=== PATIENT | male | born 1965 | race Caucasian/White ===

== ENCOUNTER 2023-03-06 08:27 | Outpatient (OUT) | payer OTHER, SELFPAY ==
--- NOTE | 2023-03-06 08:36 | XR_ITS ---
The [address] [address] Patient Name: FABIAN KENNEDY MRN: [id number] date: 1965 Sex: M Assigned Patient Location: [facility] Current Patient Location: [facility] Accession/Order Number: [id number] Exam Date: 03/06/2023 08:36 Report Date: 03/06/2023 09:30 At the request of: REAGAN MOELLER Procedure: XR shoulder RT min 2V PROCEDURE: XR shoulder RT min 2V HISTORY: Acute Pain Of Right Shoulder M25.511 COMPARISON: None. FINDINGS: BONES:Mild degenerative changes of the acromioclavicular joint. Unremarkable humeral head and glenohumeral joint. No fracture, dislocation, bone lesion. Stable surgical clip adjacent proximal humeral diaphysis. SOFT TISSUES:No visible soft tissue swelling. EFFUSION:None visible. OTHER: Negative. XR/XR shoulder RT min 2V IMPRESSION: 1. No acute bone abnormality. 2. Mild degenerative changes of the acromioclavicular joint which may predispose to rotator cuff injury. Electronically authenticated by: REAGAN ALVAREZ Date: 03/06/2023 09:30
== END 2023-03-06 08:28 | disposition home or self-care (01) ==
PROVIDERS: PCP Family Medicine; Visit Provider Orthopaedic Surgery
DX: M25.511 Pain in right shoulder (principal)
CPT/HCPCS: 73030

== ENCOUNTER 2023-10-25 15:25 | Observation (INO) | payer OTHER, SELFPAY ==
[2023-10-25] VITALS (13 sets, daily range): BP systolic 97–119; BP diastolic 51–76; PULSE 62–93; TEMP 36.3–36.9; O2SAT 85–98; BMI 29.0
--- NOTE | 2023-10-25 16:11 | ED.ABDPAIN1 ---
Documented by User: LIDIA Hernadez 10/25/23 18:56 HPI - Abdominal Pain General Chief Complaint: Abdominal Pain Stated Complaint: Abdominal Pain Time Seen by Provider: 10/25/23 16:05 Source: patient Mode of arrival: walk-in Limitations: no limitations History of Present Illness HPI narrative: 57-year-old male presents to the emergency department with with complaint of abdominal pain. Onset last night. Initially located to the left lower quadrant, now noticing into the right lower quadrant. Describes as cramping. Did have some nausea and vomiting at midnight last night. Denies any fever, chills, diarrhea, prior abdominal surgeries. Quality: as above Severity: moderate Timing: as above, constant Context: Normal setting and activity Modifying factors: pain worse with palpation Associated symptoms: as above Related Data Home Medications ?Medication ?Instructions ?Recorded ?Confirmed No Known Home Medications 10/25/23 10/25/23 Allergies Allergy/AdvReac Type Severity Reaction Status Date / Time No Known Drug Allergies Allergy Verified 10/25/23 15:28 Review of Systems ROS Narrative CONST: Denies any fever, chills HENT: Denies any congestion, sore throat RESP: Denies any cough, shortness of breath CV: Denies any chest pain, peripheral edema GI: +abd pain, n/v.? Denies any diarrhea : Denies any flank pain, dysuria MS: Denies any back pain, myalgias SKIN: Denies any color change, rash NEURO: Denies numbness, weakness PSYCHIATRIC: Denies confusion, agitation PFSH PFSH Surgical History (Updated 10/25/23 @ 18:23 by Marysol Eller LPN) History of arthroplasty of right shoulder ?Z96.611 - Presence of right artificial shoulder joint (ICD-10) H/O hernia repair ?Z98.890 - Other specified postprocedural states (ICD-10) ?Z87.19 - Personal history of other diseases of the digestive system (ICD-10) H/O knee surgery ?Z98.890 - Other specified postprocedural states (ICD-10) Family History (Updated 10/25/23 @ 18:22 by Marysol Eller LPN) Father Family history of diabetes mellitus Mother Family history of hypertension Social History (Updated 10/25/23 @ 18:25 by Marysol Eller LPN) Within the past year, how often did you have a drink containing alcohol: monthly or less Within the past year, how many standard drinks containing alcohol did you have on a typical day: 1 or 2 Within the past year, how often did you have six or more drinks on one occasion: never Total score: 0 Score interpretation: A score less than 4 is consistent with normal alcohol consumption. Smoking status: Never smoker Non-prescribed substance use: denies use Known occupational exposures/hazards: No Highest level of school completed/degree received: Bachelor's degree Do you want help with school or training: No Are you now , , , , never or living with a partner: In a typical week, how many times do you talk on the telephone with family, friends, or neighbors: 3 or more times per week How often do you get together with friends or relatives: 3 or more times per week How often do you attend uatsdin or worship services: 4 or more times per year Do you belong to any clubs or organizations such as uatsdin groups unions, [employer] or athletic groups, or school groups: no Total score: 3 Score interpretation: A score of greater than or equal to 2 indicates the lowest level of social isolation. Little interest or pleasure in doing things: not at all Feeling down, depressed, or hopeless: not at all Due to disability, difficulty making decisions: No Do you think of yourself as: straight/heterosexual Gender Identity: male Exam Narrative Exam Narrative: Vital signs reviewed Nurses notes noted CONST: Nontoxic, well appearing, well nourished, in no distress.? No diaphoresis.?? HENT: normocephalic, atraumatic, moist mucous membrane, no abnormalities of the nose noted, hearing normal EYES: normal appearing conjunctiva, no apparent discharge bilat NECK: normal appearance CV: normal rate, regular rhythm, no murmur RESP: normal effort, speaking in complete sentences. Lung sounds clear and equal bilat.? No wheezes, rales, rhonchi GI: normal bowel sounds, soft, no distension, + tenderness right lower quadrant without rebound or guarding : no CVA tenderness MS: no edema, tenderness SKIN: no pallor NEURO: A&Ox 3, no focal findings PSYCH: normal mood, affect Constitutional Vital Signs, click to edit/add: Last Vital Signs Temp 97.9 F 04/10/24 20:53 Pulse 64 10/25/23 20:53 Resp 18 10/25/23 20:53 BP 97/58 10/25/23 20:53 Pulse Ox 90 L 10/25/23 20:54 O2 Del Method Nasal Cannula 10/25/23 20:54 O2 Flow Rate 2 10/25/23 20:54 Course Reevaluation(s) Reevaluation #1: On reevaluation, patient's pain has improved, it is controlled. Discussed with patient and results, plan, disposition. They are agreeable with plan Time: 17:30 Consultations Consultation #1: Patient discussed with Dr. Gleason who will contact the nursing gate services supervisor for surgery Time: 17:41 Consultation #2: Patient discussed with Dr. Che who is agreeable with admission Time: 17:41 Vital Signs Vital signs: Vital Signs Temperature 98.4 F 10/25/23 15:28 Pulse Rate 62 10/25/23 15:28 Respiratory Rate 20 10/25/23 15:28 Blood Pressure 109/64 10/25/23 15:28 Pulse Oximetry 98 10/25/23 15:28 Oxygen Delivery Method Room Air 10/25/23 15:28 Temperature 97.9 F 10/25/23 20:53 Pulse Rate 64 10/25/23 20:53 Respiratory Rate 18 10/25/23 20:53 Blood Pressure 97/58 10/25/23 20:53 Pulse Oximetry 90 L 10/25/23 20:54 Oxygen Delivery Method Nasal Cannula 10/25/23 20:54 Oxygen Delivery Flow Rate 2 10/25/23 20:54 MDM - Abdominal Pain MDM Narrative Medical decision making narrative: Is a pleasant 57-year-old male who presents to the emergency department with his with complaint of abdominal pain. Onset last night in the left lower abdominal region. Did have nausea and vomiting at midnight. Now pain is located to the right lower quadrant region and has been worsening. Denies any known fevers, diarrhea, prior abdominal problems, surgeries. Denies past medical history. On arrival, afebrile, vital signs are stable. On exam, nontoxic, well-appearing patient in no apparent distress. He does have focal tenderness to the right lower quadrant region of his abdomen. No appreciable rebound or guarding was present. Labs reveal elevated white blood cell count of 16,000. Otherwise no anemia, thrombocytopenia, electrolyte imbalance, renal impairment. CT abdomen pelvis imaging, per radiologist reveals appendicitis with some localized peritonitis. Fever abdominal pain secondary to acute appendicitis. Less likely diverticulitis based on imaging Less likely ureterolithiasis based on imaging. Consultation was made with surgery on-call and patient will be admitted to the hospitalist service. He was started on IV Zosyn. Disposition ? The patient was admitted, observation status. Condition at time of disposition: stable & improved Discussed with patient and family results, plan, and disposition.? PLEASE NOTE: Portions of the medical record may have been produced using electronic catalogue illustrator and may contain errors with respect to translation of words which may not have been identified prior to finalization of the chart. Lab Data Attestation: I reviewed the patient's lab results. Labs: Lab Results 10/25/23 Range/Units 16:00 WBC 16.4 H (4.0-11.0) 10^3/uL RBC 4.88 (4.70-6.10) 10^6/uL Hgb 15.1 (14.0-18.0) g/dL Hct 45.3 (42.0-54.0) % MCV 92.8 (80.0-94.0) fL MCH 30.9 (25.9-34.0) pg MCHC 33.3 (29.9-35.2) g/dL RDW 12.2 (11.0-15.0) % Plt Count 266 (150-450) 10^3/uL MPV 9.2 L (9.5-13.5) fL Neut % (Auto) 83.8 H (43.0-75.0) % Lymph % (Auto) 7.3 L (20.5-60.0) % [place] % (Auto) 7.8 (1.7-12.0) % Eos % (Auto) 0.6 L (0.9-7.0) % Baso % (Auto) 0.3 (0.2-2.0) % Neut # (Auto) 13.7 H (1.4-6.5) 10^3/uL Lymph # (Auto) 1.2 (1.2-3.8) 10^3/uL [place] # (Auto) 1.3 H (0.3-0.8) 10^3/uL Eos # (Auto) 0.1 (0.0-0.7) 10^3/uL Baso # (Auto) 0.1 (0.0-0.1) 10^3/uL Abs Immat Gran (auto) 0.04 H (0.00-0.03) 10^3/uL Imm/Tot Granulo (auto) 0.2 (0.0-0.5) % Sodium 141 (136-145) mmol/L Potassium 3.7 (3.5-5.1) mmol/L Chloride 103 (98-107) mmol/L Carbon Dioxide 31.3 (21.0-32.0) mmol/L Anion Gap 10.4 BUN 12.0 (7.0-18.0) mg/dL Creatinine 0.96 (0.70-1.30) mg/dL Est GFR ( Amer) >60 (>=60) Est GFR (Non-Af Amer) >60 (>=60) BUN/Creatinine Ratio 12.5 Glucose 97 (74-106) mg/dL Calcium 9.2 (8.5-10.1) mg/dL Total Bilirubin 1.7 H (0.2-1.0) mg/dL AST 17 (15-37) U/L ALT 47 (16-63) U/L Alkaline Phosphatase 88 (46-116) U/L Total Protein 6.9 (6.4-8.2) g/dL Albumin 3.5 (3.4-5.0) g/dL Globulin 3.4 g/dL Albumin/Globulin Ratio 1.0 Lipase 40.0 (16.0-77.0) U/L Urine Color Yellow (YELLOW) Urine Clarity Clear (CLEAR) Urine pH 6.0 (5.0-9.0) Ur Specific [place] 1.025 (1.005-1.025) Urine Protein Trace (NEG/TRACE) mg/dL Urine Glucose (UA) Negative (NEGATIVE) mg/dL Urine Ketones Trace A (NEGATIVE) mg/dL Urine Occult Blood Negative (NEGATIVE) Urine Nitrite Negative (NEGATIVE) Urine Bilirubin Negative (NEGATIVE) Urine Urobilinogen 1.0 (0.2-1.0) EU/dL Ur Leukocyte Esterase Negative (NEGATIVE) Urine RBC 0-2 (0-2) #/HPF Urine WBC None seen (NONE SEEN) #/HPF Ur Squamous Epith Cells Rare (NONE/RARE) #/LPF Urine Crystals None seen (None Seen) #/HPF Urine Bacteria Trace A (NONE SEEN) #/HPF Urine Casts None seen (NONE SEEN) #/LPF Urine Mucus Moderate A (NONE SEEN) Imaging Data CT scan - abdomen: Radiologist's impression: ITS Impressions Abdomen/Pelvis CT 10/25/23 16:39 IMPRESSION: 1. Abnormal findings right lower quadrant consistent with appendicitis with atypical gas possible extraluminal due to localized perforation.. Stranding and inflammation noted in this area without definite findings of abscess. New from previous CT 03/24/2021. 2. No small bowel dilatation or obstruction. No inflammation or fluid noted in the abdomen. 3. Cholelithiasis without evidence of cholecystitis. Electronically authenticated by: KIANA JACKSON Date: 10/25/2023 17:06 Discharge Plan Discharge Chief Complaint: Abdominal Pain Clinical Impression: Abdominal pain, acute, right lower quadrant Leukocytosis Qualifiers: Leukocytosis type: unspecified Qualified Code(s): D72.829 - Elevated white blood cell count, unspecified Acute appendicitis Qualifiers: Acute appendicitis type: with localized peritonitis Appendicitis gangrene presence: without gangrene Appendicitis perforation presence: unspecified whether perforation present Appendicitis abscess presence: without abscess Qualified Code(s): K35.30 - Acute appendicitis with localized peritonitis, without perforation or gangrene Patient Disposition: Admitted as Observation Time of Disposition Decision: 17:39 Condition: Good Discharge Date/Time: 10/25/23 17:58 Documented by User: Dhruv Greenfield MD 10/25/23 21:39 HPI - Abdominal Pain General Chief Complaint: Abdominal Pain Stated Complaint: Abdominal Pain Time Seen by Provider: 10/25/23 16:05 Related Data Home Medications ?Medication ?Instructions ?Recorded ?Confirmed No Known Home Medications 10/25/23 10/25/23 Allergies Allergy/AdvReac Type Severity Reaction Status Date / Time No Known Drug Allergies Allergy Verified 10/25/23 15:28 PFSH PFSH Surgical History (Updated 10/25/23 @ 18:23 by Marysol Eller LPN) History of arthroplasty of right shoulder ?Z96.611 - Presence of right artificial shoulder joint (ICD-10) H/O hernia repair ?Z98.890 - Other specified postprocedural states (ICD-10) ?Z87.19 - Personal history of other diseases of the digestive system (ICD-10) H/O knee surgery ?Z98.890 - Other specified postprocedural states (ICD-10) Family History (Updated 10/25/23 @ 18:22 by Marysol Eller LPN) Father Family history of diabetes mellitus Mother Family history of hypertension Social History (Updated 10/25/23 @ 18:25 by Marysol Eller LPN) Within the past year, how often did you have a drink containing alcohol: monthly or less Within the past year, how many standard drinks containing alcohol did you have on a typical day: 1 or 2 Within the past year, how often did you have six or more drinks on one occasion: never Total score: 0 Score interpretation: A score less than 4 is consistent with normal alcohol consumption. Smoking status: Never smoker Non-prescribed substance use: denies use Known occupational exposures/hazards: No Highest level of school completed/degree received: Bachelor's degree Do you want help with school or training: No Are you now , , , , never or living with a partner: In a typical week, how many times do you talk on the telephone with family, friends, or neighbors: 3 or more times per week How often do you get together with friends or relatives: 3 or more times per week How often do you attend uatsdin or worship services: 4 or more times per year Do you belong to any clubs or organizations such as uats[employer] groups unions, fraternal or athletic groups, or school groups: no Total score: 3 Score interpretation: A score of greater than or equal to 2 indicates the lowest level of social isolation. Little interest or pleasure in doing things: not at all Feeling down, depressed, or hopeless: not at all Due to disability, difficulty making decisions: No Do you think of yourself as: straight/heterosexual Gender Identity: male Exam Constitutional Vital Signs, click to edit/add: Last Vital Signs Temp 97.9 F 10/25/23 20:53 Pulse 64 10/25/23 20:53 Resp 18 10/25/23 20:53 BP 97/58 10/25/23 20:53 Pulse Ox 90 L 10/25/23 20:54 O2 Del Method Nasal Cannula 10/25/23 20:54 O2 Flow Rate 2 10/25/23 20:54 Course Vital Signs Vital signs: Vital Signs Temperature 98.4 F 10/25/23 15:28 Pulse Rate 62 10/25/23 15:28 Respiratory Rate 20 10/25/23 15:28 Blood Pressure 109/64 10/25/23 15:28 Pulse Oximetry 98 10/25/23 15:28 Oxygen Delivery Method Room Air 10/25/23 15:28 Temperature 97.9 F 10/25/23 20:53 Pulse Rate 64 10/25/23 20:53 Respiratory Rate 18 10/25/23 20:53 Blood Pressure 97/58 10/25/23 20:53 Pulse Oximetry 90 L 10/25/23 20:54 Oxygen Delivery Method Nasal Cannula 10/25/23 20:54 Oxygen Delivery Flow Rate 2 10/25/23 20:54 MDM - Abdominal Pain MDM Narrative Medical decision making narrative: Is a pleasant 57-year-old male who presents to the emergency department with his with complaint of abdominal pain. Onset last night in the left lower abdominal region. Did have nausea and vomiting at midnight. Now pain is located to the right lower quadrant region and has been worsening. Denies any known fevers, diarrhea, prior abdominal problems, surgeries. Denies past medical history. On arrival, afebrile, vital signs are stable. On exam, nontoxic, well-appearing patient in no apparent distress. He does have focal tenderness to the right lower quadrant region of his abdomen. No appreciable rebound or guarding was present. Labs reveal elevated white blood cell count of 16,000. Otherwise no anemia, thrombocytopenia, electrolyte imbalance, renal impairment. CT abdomen pelvis imaging, per radiologist reveals appendicitis with some localized peritonitis. Fever abdominal pain secondary to acute appendicitis. Less likely diverticulitis based on imaging Less likely ureterolithiasis based on imaging. Consultation was made with surgery on-call Dr Gleason, and patient will be admitted to the hospitalist service. He was started on IV Zosyn. Disposition ? The patient was admitted, observation status. Condition at time of disposition: stable & improved Discussed with patient and family results, plan, and disposition.? PLEASE NOTE: Portions of the medical record may have been produced using electronic catalogue illustrator and may contain errors with respect to translation of words which may not have been identified prior to finalization of the chart. I, Dr Greenfield, have reviewed the above progress note and course of action in the ER; agree with the above. I have gone over history and physical, and discussed disposition and treatment plan with the patient. Lab Data Labs: Lab Results 10/25/23 Range/Units 16:00 WBC 16.4 H (4.0-11.0) 10^3/uL RBC 4.88 (4.70-6.10) 10^6/uL Hgb 15.1 (14.0-18.0) g/dL Hct 45.3 (42.0-54.0) % MCV 92.8 (80.0-94.0) fL MCH 30.9 (25.9-34.0) pg MCHC 33.3 (29.9-35.2) g/dL RDW 12.2 (11.0-15.0) % Plt Count 266 (150-450) 10^3/uL MPV 9.2 L (9.5-13.5) fL Neut % (Auto) 83.8 H (43.0-75.0) % Lymph % (Auto) 7.3 L (20.5-60.0) % [place] % (Auto) 7.8 (1.7-12.0) % Eos % (Auto) 0.6 L (0.9-7.0) % Baso % (Auto) 0.3 (0.2-2.0) % Neut # (Auto) 13.7 H (1.4-6.5) 10^3/uL Lymph # (Auto) 1.2 (1.2-3.8) 10^3/uL [place] # (Auto) 1.3 H (0.3-0.8) 10^3/uL Eos # (Auto) 0.1 (0.0-0.7) 10^3/uL Baso # (Auto) 0.1 (0.0-0.1) 10^3/uL Abs Immat Gran (auto) 0.04 H (0.00-0.03) 10^3/uL Imm/Tot Granulo (auto) 0.2 (0.0-0.5) % Sodium 141 (136-145) mmol/L Potassium 3.7 (3.5-5.1) mmol/L Chloride 103 (98-107) mmol/L Carbon Dioxide 31.3 (21.0-32.0) mmol/L Anion Gap 10.4 BUN 12.0 (7.0-18.0) mg/dL Creatinine 0.96 (0.70-1.30) mg/dL Est GFR ( Amer) >60 (>=60) Est GFR (Non-Af Amer) >60 (>=60) BUN/Creatinine Ratio 12.5 Glucose 97 (74-106) mg/dL Calcium 9.2 (8.5-10.1) mg/dL Total Bilirubin 1.7 H (0.2-1.0) mg/dL AST 17 (15-37) U/L ALT 47 (16-63) U/L Alkaline Phosphatase 88 (46-116) U/L Total Protein 6.9 (6.4-8.2) g/dL Albumin 3.5 (3.4-5.0) g/dL Globulin 3.4 g/dL Albumin/Globulin Ratio 1.0 Lipase 40.0 (16.0-77.0) U/L Urine Color Yellow (YELLOW) Urine Clarity Clear (CLEAR) Urine pH 6.0 (5.0-9.0) Ur Specific [place] 1.025 (1.005-1.025) Urine Protein Trace (NEG/TRACE) mg/dL Urine Glucose (UA) Negative (NEGATIVE) mg/dL Urine Ketones Trace A (NEGATIVE) mg/dL Urine Occult Blood Negative (NEGATIVE) Urine Nitrite Negative (NEGATIVE) Urine Bilirubin Negative (NEGATIVE) Urine Urobilinogen 1.0 (0.2-1.0) EU/dL Ur Leukocyte Esterase Negative (NEGATIVE) Urine RBC 0-2 (0-2) #/HPF Urine WBC None seen (NONE SEEN) #/HPF Ur Squamous Epith Cells Rare (NONE/RARE) #/LPF Urine Crystals None seen (None Seen) #/HPF Urine Bacteria Trace A (NONE SEEN) #/HPF Urine Casts None seen (NONE SEEN) #/LPF Urine Mucus Moderate A (NONE SEEN) Imaging Data CT scan - abdomen: Radiologist's impression: ITS Impressions Abdomen/Pelvis CT 10/25/23 16:39
[2023-10-25 16:19] LABS: Basophils Absolute Auto 0.1 10^3/uL (0.0-0.1); Basophils Percent Auto 0.3 % (0.2-2.0); Eosinophils Absolute Auto 0.1 10^3/uL (0.0-0.7); Eosinophils Percent Auto 0.6 % (0.9-7.0); Hematocrit 45.3 % (42.0-54.0); Hemoglobin 15.1 g/dL (14.0-18.0); Immature Granulocytes Abs Auto 0.04 10^3/uL (0.00-0.03); Immature Granulocytes Pct Auto 0.2 % (0.0-0.5); Lymphocytes Absolute Auto 1.2 10^3/uL (1.2-3.8); Lymphocytes Percent Auto 7.3 % (20.5-60.0); Mean Corpuscular HGB Conc 33.3 g/dL (29.9-35.2); Mean Corpuscular Hemoglobin 30.9 pg (25.9-34.0); Mean Corpuscular Volume 92.8 fL (80.0-94.0); Mean Platelet Volume 9.2 fL (9.5-13.5); Monocytes Absolute Auto 1.3 10^3/uL (0.3-0.8); Monocytes Percent Auto 7.8 % (1.7-12.0); Neutrophils Absolute Auto 13.7 10^3/uL (1.4-6.5); Neutrophils Percent Auto 83.8 % (43.0-75.0); Platelet Count 266 10^3/uL (150-450); Red Blood Count 4.88 10^6/uL (4.70-6.10); Red Cell Distribution Width 12.2 % (11.0-15.0); White Blood Count 16.4 10^3/uL (4.0-11.0)
[2023-10-25 16:20] LABS: Bilirubin Urine NEGATIVE (NEGATIVE); Blood Urine NEGATIVE (NEGATIVE); Clarity Urine CLEAR (CLEAR); Color Urine YELLOW (YELLOW); Glucose Urine UA NEGATIVE (NEGATIVE); Ketones Urine TRACE mg/dL (NEGATIVE); Leukocyte Esterase Urine NEGATIVE (NEGATIVE); Nitrite Urine NEGATIVE (NEGATIVE); Protein Urine TRACE mg/dL (NEG/TRACE); Specific Gravity Urine 1.025 (1.005-1.025)
[2023-10-25] MEDS: ONDANSETRON PF 4 MG/2 ML VIAL IV (16:21)
[2023-10-25] MEDS: 0.9 % SODIUM CHLORIDE 1,000 ML 999 ML IV (16:21)
[2023-10-25] MEDS: MORPHINE SULFATE 4 MG/ML VIAL IV (16:21)
[2023-10-25 16:30] LABS: Bacteria Urine TRACE #/HPF (NONE SEEN); Cast Seen? NONE SEEN #/LPF (NONE SEEN); Crystals Seen? None Seen #/HPF (None Seen); Mucus Urine MODERATE (NONE SEEN); RBC Urine 0-2 #/HPF (0-2); Squamous Epithelial Cell Urine RARE #/LPF (NONE/RARE); WBC Urine NONE SEEN #/HPF (NONE SEEN)
[2023-10-25 16:37] LABS: Alanine Aminotransferase 47 U/L (16-63); Albumin Level 3.5 g/dL (3.4-5.0); Alkaline Phosphatase 88 U/L (46-116); Anion Gap 10.4; Aspartate Amino Transferase 17 U/L (15-37); BUN Creatinine Ratio 12.5; Bilirubin Total 1.7 mg/dL (0.2-1.0); Calcium 9.2 mg/dL (8.5-10.1); Carbon Dioxide 31.3 mmol/L (21.0-32.0); Chloride 103 mmol/L (98-107); Estimated GFR (African America >60 (>=60); Estimated GFR (Non-African Ame >60 (>=60); Globulin 3.4 g/dL; Glucose 97 mg/dL (74-106); Potassium 3.7 mmol/L (3.5-5.1); Sodium 141 mmol/L (136-145); Total Protein 6.9 g/dL (6.4-8.2)
--- NOTE | 2023-10-25 16:39 | CT_ITS ---
The [address] [address] Patient Name: FABIAN KENNEDY MRN: [id number] date: 1965 Sex: M Assigned Patient Location: ER Current Patient Location: ER Accession/Order Number: [id number] Exam Date: 10/25/2023 16:28 Report Date: 10/25/2023 17:06 At the request of: SALVADOR FERNANDEZ Procedure: CT abdomen pelvis w con EXAM: CT abdomen pelvis w con HISTORY: RLQ abd pain COMPARISON: CT abdomen pelvis 03/24/2021. Right upper quadrant ultrasound 03/26/2021. TECHNIQUE: CT abdomen pelvis with IV contrast. Axial scans with reformatted coronal sagittal images. Individualized dose reduction used for this exam. Contrast: 100 mL Omnipaque 300 FINDINGS: Lower chest: No acute process, no consolidation or pleural effusion. ABDOMEN: Normal enhancement liver without mass or focal lesion. Cholelithiasis with 2 stones 12 mm 17 mm similar to previous. No gallbladder wall thickening, edema or surrounding fluid or evidence of cholecystitis. No biliary dilatation. Normal-appearing adrenal glands, pancreas spleen. No ascites or fluid collection. No adenopathy. Normal symmetric renal enhancement without mass or hydronephrosis. Normal appearing ureters. Abnormal findings right lower quadrant adjacent the cecum and terminal ileum. Distended tubular structure felt to be appendix up to 15 mm diameter. Faintly calcified appendicolith felt to be present. Surrounding stranding and inflammation consistent with acute appendicitis possible extraluminal gas medially which could be localized perforation. I do not see a walled off rim-enhancing fluid collection/abscess in this area. Reflects a marked change from CT 03/24/2021. Appendix located retrocecal. Bowel otherwise unremarkable without small bowel this dilatation or obstruction. Moderate gas and stool throughout the colon Pelvis: Right lower quadrant upper pelvic inflammation consistent with appendicitis as noted above. No lower pelvic fluid collection, mass or adenopathy. Small amount of fluid in the bladder. Prominent prostate. CT/CT abdomen pelvis w con IMPRESSION: 1. Abnormal findings right lower quadrant consistent with appendicitis with atypical gas possible extraluminal due to localized perforation.. Stranding and inflammation noted in this area without definite findings of abscess. New from previous CT 03/24/2021. 2. No small bowel dilatation or obstruction. No inflammation or fluid noted in the abdomen. 3. Cholelithiasis without evidence of cholecystitis. Electronically authenticated by: KIANA JACKSON Date: 10/25/2023 17:06
[2023-10-25] MEDS: PIPERACILLIN SODIUM/TAZOBACTAM 3.375 GM in 0.9 % SODIUM CHLORIDE 50 ML IV (17:56)
--- NOTE | 2023-10-25 18:54 | P.GSCN_ITS ---
<Statement entered by Nate Gleason MD - 10/26/23 06:17> This documentation has been reviewed and approved. I examined pt. with resident and agree with all of the above. Risks, benefits and alternatives explained to pt. and his an may include infection, post op abscess, bleeding, blood clots to legs or lungs, heart attack, stroke or .They agreed. History of Present Illness Consult details Consult date: 10/25/23 Reason for consult: abdominal pain Requesting physician: Dhruv Greenfield Narrative: Mr. Hardin is a relatively healthy 57M who presents with a 1-day history of evolving abdominal pain. 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 Pain was somewhat relieved after eating, then he had about an hour of vomiting and dry heaves late last night. Throughout the day today, the pain has migrated to right lower quadrant. He was able to keep down some soup at about 11:30am today, which was his last food intake. Last BM was this morning. After pain medication administration, he rates current pain 5 out of 10. He is examined seated at bedside and does not appear in distress. Plans for laparoscopic surgery are explained to him and his , and written consent is obtained. He states he has had no issues with general anesthesia in the past. He is familiar with laparoscopic surgery after surgery on his shoulder. He has not seen his PCP for approximately 5 years but states he had a full work up of his health 4 years ago when testing to be an organ donor. Review of Systems ROS Status of ROS 10 or more systems reviewed and unremark able except as noted in history and below PFSH PFSH Surgical History (Updated 10/25/23 @ 18:23 by Marysol Eller LPN) History of arthroplasty of right shoulder ?Z96.611 - Presence of right artificial shoulder joint (ICD-10) H/O hernia repair ?Z98.890 - Other specified postprocedural states (ICD-10) ?Z87.19 - Personal history of other diseases of the digestive system (ICD-10) H/O knee surgery ?Z98.890 - Other specified postprocedural states (ICD-10) Family History (Updated 10/25/23 @ 18:22 by Marysol Eller LPN) Father Family history of diabetes mellitus Mother Family history of hypertension Social History (Updated 10/25/23 @ 18:25 by Marysol Eller LPN) Within the past year, how often did you have a drink containing alcohol: monthly or less Within the past year, how many standard drinks containing alcohol did you have on a typical day: 1 or 2 Within the past year, how often did you have six or more drinks on one occasion: never Total score: 0 Score interpretation: A score less than 4 is consistent with normal alcohol consumption. Smoking status: Never smoker Non-prescribed substance use: denies use Known occupational exposures/hazards: No Highest level of school completed/degree received: Bachelor's degree Do you want help with school or training: No Are you now , , , , never or living with a partner: In a typical week, how many times do you talk on the telephone with family, friends, or neighbors: 3 or more times per week How often do you get together with friends or relatives: 3 or more times per week How often do you attend mosque or jehovah's witness services: 4 or more times per year Do you belong to any clubs or organizations such as mosque groups unions, fra[employer] or athletic groups, or school groups: no Total score: 3 Score interpretation: A score of greater than or equal to 2 indicates the lowest level of social isolation. Little interest or pleasure in doing things: not at all Feeling down, depressed, or hopeless: not at all Due to disability, difficulty making decisions: No Do you think of yourself as: straight/heterosexual Gender Identity: male Meds Home Medications and Allergies Home Medications ?Medication ?Instructions ?Recorded ?Confirmed ?Type No Known Home Medications 10/25/23 10/25/23 History Allergies Allergy/AdvReac Type Severity Reaction Status Date / Time No Known Drug Allergies Allergy Verified 10/25/23 15:28 Exam Constitutional Vital Signs, click to edit/add: Last Vital Signs Temp 98.5 F 10/25/23 18:11 Pulse 64 10/25/23 18:11 Resp 18 10/25/23 18:11 BP 102/67 10/25/23 18:11 Pulse Ox 95 10/25/23 18:11 O2 Del Method Room Air 10/25/23 18:22 Common normals: no apparent distress, average body habitus, oriented x3, healthy appearing and alert General appearance: cooperative, well kempt and well developed; not ill appearing and not diaphoretic Orientation/consciousness: Yes awake HENMT Common normals: normocephalic, head/scalp atraumatic, hearing grossly normal bilaterally, external nose normal, moist oral mucous membranes and dentition normal Head and scalp: normal to inspection Neck & C-Spine General: normal visual inspection Chest Common normals: inspection of chest normal Respiratory Common normals: normal respiratory effort and clear to auscultation bilaterally Effort & inspection: able to speak in complete sentences and symmetric chest movement Cardio Common normals: regular rate and regular rhythm GI Inspection: normal to inspection Auscultation: normoactive bowel sounds Palpation: soft and tender Details: RLQ and McBurney's point; negative for Rovsing's sign Neuro Common normals: CN's II-XII intact bilaterally and no sensory deficits noted Results Labs Labs: Abnormal lab results 10/25/23 Range/Units 16:00 WBC 16.4 H (4.0-11.0) 10^3/uL MPV 9.2 L (9.5-13.5) fL Neut % (Auto) 83.8 H (43.0-75.0) % Lymph % (Auto) 7.3 L (20.5-60.0) % Eos % (Auto) 0.6 L (0.9-7.0) % Neut # (Auto) 13.7 H (1.4-6.5) 10^3/uL Hinds # (Auto) 1.3 H (0.3-0.8) 10^3/uL Abs Immat Gran (auto) 0.04 H (0.00-0.03) 10^3/uL Total Bilirubin 1.7 H (0.2-1.0) mg/dL Urine Ketones Trace A (NEGATIVE) mg/dL Urine Bacteria Trace A (NONE SEEN) #/HPF Urine Mucus Moderate A (NONE SEEN) Diabetes panel 10/25/23 Range/Units 16:00 Sodium 141 (136-145) mmol/L Potassium 3.7 (3.5-5.1) mmol/L Chloride 103 (98-107) mmol/L Carbon Dioxide 31.3 (21.0-32.0) mmol/L BUN 12.0 (7.0-18.0) mg/dL Creatinine 0.96 (0.70-1.30) mg/dL Glucose 97 (74-106) mg/dL Calcium 9.2 (8.5-10.1) mg/dL AST 17 (15-37) U/L ALT 47 (16-63) U/L Alkaline Phosphatase 88 (46-116) U/L Total Protein 6.9 (6.4-8.2) g/dL Albumin 3.5 (3.4-5.0) g/dL Calcium panel 10/25/23 Range/Units 16:00 Calcium 9.2 (8.5-10.1) mg/dL Albumin 3.5 (3.4-5.0) g/dL Pituitary panel 10/25/23 Range/Units 16:00 Sodium 141 (136-145) mmol/L Potassium 3.7 (3.5-5.1) mmol/L Chloride 103 (98-107) mmol/L Carbon Dioxide 31.3 (21.0-32.0) mmol/L BUN 12.0 (7.0-18.0) mg/dL Creatinine 0.96 (0.70-1.30) mg/dL Glucose 97 (74-106) mg/dL Calcium 9.2 (8.5-10.1) mg/dL Adrenal panel 10/25/23 Range/Units 16:00 Sodium 141 (136-145) mmol/L Potassium 3.7 (3.5-5.1) mmol/L Chloride 103 (98-107) mmol/L Carbon Dioxide 31.3 (21.0-32.0) mmol/L BUN 12.0 (7.0-18.0) mg/dL Creatinine 0.96 (0.70-1.30) mg/dL Glucose 97 (74-106) mg/dL Calcium 9.2 (8.5-10.1) mg/dL Total Bilirubin 1.7 H (0.2-1.0) mg/dL AST 17 (15-37) U/L ALT 47 (16-63) U/L Alkaline Phosphatase 88 (46-116) U/L Total Protein 6.9 (6.4-8.2) g/dL Albumin 3.5 (3.4-5.0) g/dL All other labs normal. Imaging Abdomen CT scan report/results: report reviewed Assessment and Plan Assessment and Plan (1) Acute appendicitis: Qualifiers: Acute appendicitis type: with localized peritonitis Appendicitis abscess presence: without abscess Appendicitis gangrene presence: without gangrene Appendicitis perforation presence: unspecified whether perforation present Qualified Code(s): K35.30 - Acute appendicitis with localized peritonitis, without perforation or gangrene (2) Abdominal pain, acute, right lower quadrant: (3) Leukocytosis: Qualifiers: Leukocytosis type: unspecified Qualified Code(s): D72.829 - Elevated white blood cell count, unspecified Plan Mr. Hardin is a 57M with little past medical history who presents with acute appendicitis. CT showed distended appendix up to 15mm in diameter consistent with appendicitis; atypical gas possible extraluminal due to localized perforation.. Stranding and inflammation noted in this area without definite findings of abscess. Leukocytosis of 16.4, afebrile, and hemodynamically stable. Pt is appropriate for immediate surgery. Benefits and risks of laparoscopic appendectomy, including infection, bleeding, perforation, failure to remove entirety of appendix, life-threatening outcomes, and possible conversion to open approach explained to pt and . Plan -Emergent laparoscopic appendectomy -s/p IV Zosyn in ED -Monitor AM CBC and CMP; anticipating improving leukocytosis -Continue analgesia and anti-emetics PRN -Advance diet as tolerated -Will continue to follow Note initiated by Rita Curtis MD, PGY-1
[2023-10-25] MEDS: LACTATED RINGER'S SOLUTION 1,000 ML 75 ML IV (18:55)
--- NOTE | 2023-10-25 19:41 | PM.GSPRC ---
Date of procedure: 10/25/23 Indications for Procedure: acute appendicitis Pre-op diagnosis: acute appendicitis Post-op diagnosis: same as pre-op Procedure: laparoscopic appendectomy Findings: acute gangrenous appendicitis Anesthesia: GETA Procedure Summary: LAPAROSCOPIC APPENDECTOMY The patient was taken to the operating suite, placed in the supine position and given a general anesthetic by the anesthesiologist.time out was taken and preoperative antibiotics were given. Informed consent was obtained from the patient.The abdomen was prepped and draped in the usual sterile fashion. A subumbilical incision was made down to the anterior rectus fascia and was opened in the midline and traction sutures of #0 Vicryl were placed. The peritoneal cavity was entered and the Vale port was placed into the abdominal cavity. The abdomen was insufflated with carbon dioxide to 15 mmHg pressure. The laparoscope was then placed with an acute suppurative appendix found when the patient was placed in Trendelenburg position. A 12 mm port was placed in the left lower quadrant and another 12 mm port was placed in the right upper quadrant all under direct visualization. A grasper was placed on the appendix and it was held anteriorly on traction and then a curved dissector was used to dissect a window in the mesoappendix and then an Endo-BETZAIDA stapling device was fired across the appendix at the base of the cecum.The mesoappendix was taken down with LigaSure device maintaining hemostasis. Hemostasis being maintained, all ports were then removed after the appendix had been removed in a bag. Anterior rectus fascia was closed with #0 Vicryl suture in an interrupted fashion and the other two port sites were also closed with #0 Vicryl suture in an interrupted fashion. 0.5% Marcaine 30 cc was used to anesthetize subcutaneous tissue. Skin was closed with 4 Monocryl suture in running subcuticular fashion. Steri-Strips were applied. Sponge, needle and instrument counts were correct. Case was clean, contaminated emergency Specimen - Appendix The patient went to recovery room in satisfactory condition. Ethnoarchaeologist: JONATHAN Marie, Dr. Rita Curtis resident physician Estimated blood loss (mL): 5 Specimens: appendix Complications: No Condition: stable Disposition: PACU
[2023-10-25] MEDS: BUPIVACAINE HCL 0.5% PF 50 MG/10 ML VIAL 20 ML INJ (19:50)
[2023-10-25] MEDS: 0.9 % SODIUM CHLORIDE 1,000 ML 50 ML IV (21:03)
[2023-10-26] VITALS (11 sets, daily range): BP systolic 101–144; BP diastolic 62–84; PULSE 51–71; TEMP 36.5–37.1; O2SAT 91–94
[2023-10-26] MEDS: ACETAMINOPHEN 500 MG TABLET 1000 MG PO ×3 (02:42→18:44)
--- NOTE | 2023-10-26 02:48 | PC.NURSE ---
Patient up to bathroom for first time post surgery. Tolerated well with minor discomfort. PRN Tylenol given. Returned back to bed SPO2 91 on Room Air
[2023-10-26 05:03] LABS: Hematocrit 39.6 % (42.0-54.0); Hemoglobin 13.1 g/dL (14.0-18.0); Mean Corpuscular HGB Conc 33.1 g/dL (29.9-35.2); Mean Corpuscular Hemoglobin 30.8 pg (25.9-34.0); Mean Corpuscular Volume 93.2 fL (80.0-94.0); Mean Platelet Volume 9.6 fL (9.5-13.5); Platelet Count 231 10^3/uL (150-450); Red Blood Count 4.25 10^6/uL (4.70-6.10); Red Cell Distribution Width 12.7 % (11.0-15.0); White Blood Count 19.8 10^3/uL (4.0-11.0)
[2023-10-26 05:38] LABS: Alanine Aminotransferase 151 U/L (16-63); Albumin Globulin Ratio 0.9; Alkaline Phosphatase 82 U/L (46-116); Aspartate Amino Transferase 121 U/L (15-37); BUN Creatinine Ratio 12.7; Bilirubin Total 2.3 mg/dL (0.2-1.0); Calcium 8.7 mg/dL (8.5-10.1); Carbon Dioxide 28.1 mmol/L (21.0-32.0); Chloride 103 mmol/L (98-107); Estimated GFR (African America >60 (>=60); Estimated GFR (Non-African Ame >60 (>=60); Globulin 3.2 g/dL; Glucose 144 mg/dL (74-106); Potassium 4.1 mmol/L (3.5-5.1); Sodium 138 mmol/L (136-145); Total Protein 6.2 g/dL (6.4-8.2)
[2023-10-26 08:46] LABS: Estimated Average Glucose 100 mg/dL; Glycohemoglobin A1C 5.1 % (4.5-6.2)
[2023-10-26] MEDS: PIPERACILLIN SODIUM/TAZOBACTAM 3.375 GM in 0.9 % SODIUM CHLORIDE 50 ML IV (09:56)
[2023-10-26] MEDS: TRAMADOL HCL 50 MG TABLET PO ×2 (10:38→23:50)
--- NOTE | 2023-10-26 12:36 | P.HP_ITS ---
<Statement entered by Wei Che MD - 10/26/23 19:44> Patient seen and examined, agree with assessment and plan below. Presented to ER with acute appendicitis and taken to OR. Admitted after surgery and pain controlled. WBC and LFTs elevated. Started antibiotics. Disposition per surgery. Diagnosis: 1. Appendicitis 2. Leukocytosis 3. Hyperglycemia 4. Transaminitis HPI H&P: HPI History of Present Illness Chief complaint: Abdominal Pain aCUTE APPENDICITIS Narrative: 10/26/23 1020 This is a 57-year-old male patient with a benign past medical history who reported to the ED yesterday evening complaining of abdominal pain. He reports onset of periumbilical pain in the evening of 4 9. Around midnight he experienced nausea and vomiting and then dry heaves. His nausea and vomiting resolved and has not recurred, however his abdominal pain has shifted to the right lower quadrant and was persistent and severe and thus he presented to the ED for further evaluation. Workup in the ED revealed leukocytosis (16.4), and mild hyperbilirubinemia (1.7 ). CT abdomen imaging revealed acute appendicitis with possible microperforation with stranding and inflammatory changes but no definitive abscess formation. Dr. Gleason, general surgeon, was contacted by the ED provider and he agreed to consult on the patient and take him to surgery emergently for an appendectomy. The the patient was taken to the OR emergently last night. At the time of my exam this morning the patient is resting comfortably on the side of the bed. He just finished walking in the tovar. He reports mild to moderate pain at the britni-incisional laparoscopic sites. Otherwise he denies pain, N/V/D, chest pain, shortness of breath, or any other acute complaint. He is requesting discharge home but has not yet seen Dr. Gleason. Discharge is possible later today pending Dr. Gleason' evaluation. The patient's leukocytosis did worsen this morning (19.8), but the patient has remained afebrile and with stable vital signs. This leukocytosis may reflect acute reaction to his surgical procedure. We have placed the patient on Zosyn due to his leukocytosis pending reevaluation by Dr. Gleason. Opioid HPI Opioid Management Most Recent Opioid Data: Last Pain Scale 2 10/26/23 16:00 Last Pain Assessment 10/26/23 16:00 Last MAR Pain Assessment 04/11/24 11:38 Last ORT Total Score 0 10/25/23 18:15 Last ORT Risk Category Low Risk 10/25/23 18:15 Review of Systems ROS Status of ROS 10 or more systems reviewed and unremark able except as noted in history and below [facility] Medical History (Updated 10/26/23 @ 17:18 by Thalia Tay NP) Abdominal pain, acute, right lower quadrant ?R10.31 - Right lower quadrant pain (ICD-10) Surgical History (Updated 10/25/23 @ 18:23 by Marysol Eller LPN) History of arthroplasty of right shoulder ?Z96.611 - Presence of right artificial shoulder joint (ICD-10) H/O hernia repair ?Z98.890 - Other specified postprocedural states (ICD-10) ?Z87.19 - Personal history of other diseases of the digestive system (ICD-10) H/O knee surgery ?Z98.890 - Other specified postprocedural states (ICD-10) Family History (Updated 10/25/23 @ 18:22 by Marysol Eller LPN) Father Family history of diabetes mellitus Mother Family history of hypertension Social History (Updated 10/25/23 @ 18:25 by Marysol Eller LPN) Within the past year, how often did you have a drink containing alcohol: monthly or less Within the past year, how many standard drinks containing alcohol did you have on a typical day: 1 or 2 Within the past year, how often did you have six or more drinks on one occasion: never Total score: 0 Score interpretation: A score less than 4 is consistent with normal alcohol consumption. Smoking status: Never smoker Non-prescribed substance use: denies use Known occupational exposures/hazards: No Highest level of school completed/degree received: Bachelor's degree Do you want help with school or training: No Are you now , , , , never or living with a partner: In a typical week, how many times do you talk on the telephone with family, friends, or neighbors: 3 or more times per week How often do you get together with friends or relatives: 3 or more times per week How often do you attend caodaism or sabianism services: 4 or more times per year Do you belong to any clubs or organizations such as caodaism groups unions, [employer] or athletic groups, or school groups: no Total score: 3 Score interpretation: A score of greater than or equal to 2 indicates the lowest level of social isolation. Little interest or pleasure in doing things: not at all Feeling down, depressed, or hopeless: not at all Due to disability, difficulty making decisions: No Do you think of yourself as: straight/heterosexual Gender Identity: male Meds Home Medications and Allergies Home Medications ?Medication ?Instructions ?Recorded ?Confirmed ?Type No Known Home Medications 10/25/23 10/25/23 History Allergies Allergy/AdvReac Type Severity Reaction Status Date / Time No Known Drug Allergies Allergy Verified 10/25/23 15:28 Exam Constitutional Vital Signs, click to edit/add: Last Vital Signs Temp 98.0 F 10/26/23 07:58 Pulse 51 L 10/26/23 07:58 Resp 18 10/26/23 07:58 BP 101/63 10/26/23 07:58 Pulse Ox 94 L 10/26/23 12:07 O2 Del Method Room Air 10/26/23 12:07 O2 Flow Rate 1 10/25/23 23:54 Common normals: no apparent distress, oriented x3, alert and well nourished General appearance: cooperative Orientation/consciousness: Yes awake HENMT Common normals: normocephalic, head/scalp atraumatic, hearing grossly normal bilaterally, external nose normal and moist oral mucous membranes Eye Common normals: PERRL, EOMs intact bilaterally, conjunctivae normal and no scleral icterus Alignment: alignment normal Eyelid: eyelids normal Neck & C-Spine Common normals: full ROM, supple and no JVD Chest Common normals: inspection of chest normal Chest: symmetrical chest wall rise Respiratory Common normals: normal respiratory effort, no retractions, no use of accessory muscles and clear to auscultation bilaterally Effort & inspection: able to speak in complete sentences Cardio Common normals: no JVD, regular rate, regular rhythm, S1 normal heart sound, S2 normal heart sound, no gallops, no clicks, no murmurs, no rub and peripheral pulses 2+ throughout GI Common normals: Normal to inspection, nondistended, normoactive bowel sounds present, soft to palpation, no hepatosplenomegaly, no masses and no bruits Palpation: tender (Mild, britni-incisional tenderness) Bladder/kidney exam: bladder normal to palpation Back & Pelvis Common normals: thoracic and lumbar spine normal to inspection Extremity Common normals: normal capillary refill and no pedal edema General: normal exam except as noted; no clubbing and no cyanosis Neuro Anthony Coma Scale: GCS not evaluated Common normals: CN's II-XII intact bilaterally, moves all extremities, no focal motor deficits and no sensory deficits noted Speech: speech normal Motor exam: strength 5/5 throughout Psych Common normals: mental status grossly normal, thought process normal, affect normal and activity/motor behavior normal Results Labs Labs: Short CBC 10/25/23 10/26/23 Range/Units 16:00 04:10 WBC 16.4 H 19.8 H (4.0-11.0) 10^3/uL Hgb 15.1 13.1 L (14.0-18.0) g/dL Hct 45.3 39.6 L (42.0-54.0) % Plt Count 266 231 (150-450) 10^3/uL BMP 10/25/23 10/26/23 16:00 04:10 Sodium 141 138 Potassium 3.7 4.1 Chloride 103 103 Carbon Dioxide 31.3 28.1 BUN 12.0 13.0 Creatinine 0.96 1.02 Glucose 97 144 H Calcium 9.2 8.7 Liver Function 10/25/23 10/26/23 Range/Units 16:00 04:10 Total Bilirubin 1.7 H 2.3 H (0.2-1.0) mg/dL AST 17 121 H (15-37) U/L ALT 47 151 H (16-63) U/L Alkaline Phosphatase 88 82 (46-116) U/L Albumin 3.5 3.0 L (3.4-5.0) g/dL Urine 10/25/23 Range/Units 16:00 Urine Color Yellow (YELLOW) Urine Clarity Clear (CLEAR) Urine pH 6.0 (5.0-9.0) Ur Specific [place] 1.025 (1.005-1.025) Urine Protein Trace (NEG/TRACE) mg/dL Urine Glucose (UA) Negative (NEGATIVE) mg/dL Pulse Oximetry Attestation: I have reviewed the pertinent pulse oximetry results. Imaging CT scan - abdomen: Attestation: I have reviewed the pertinent imaging results. Radiologist's impression: IMPRESSION: 1. Abnormal findings right lower quadrant consistent with appendicitis with atypical gas possible extraluminal due to localized perforation.. Stranding and inflammation noted in this area without definite findings of abscess. New from previous CT 03/24/2021. 2. No small bowel dilatation or obstruction. No inflammation or fluid noted in the abdomen. 3. Cholelithiasis without evidence of cholecystitis. Assessment and Plan Assessment and Plan (1) Acute appendicitis: Assessment and Plan: Acute * Adm observation * C/s General surgery - we appreciate Dr Gleason' assistance with this pt's care * Lap Appy per Dr Gleason on 10/25/23 * Unremarkable post op course * Tolerating diet well * D/C possible later today vs tomorrow pending Dr Gleason' plan of care Qualifiers: Acute appendicitis type: with localized peritonitis Appendicitis abscess presence: without abscess Appendicitis gangrene presence: without gangrene Appendicitis perforation presence: unspecified whether perforation present Qualified Code(s): K35.30 - Acute appendicitis with localized peritonitis, without perforation or gangrene (2) Leukocytosis: Assessment and Plan: Acute * WBC 19.8 today, up from 16.4 in ED on admission * Possibly reflects reactive changes post operatively * Pt is afebrile and VS are stable * Resume IVPB Zosyn for now pending re-eval by Dr Gleason Qualifiers: Leukocytosis type: unspecified Qualified Code(s): D72.829 - Elevated white blood cell count, unspecified (3) Transaminitis: Assessment and Plan: Acute * Unclear etiology * Trend w/ CMP in AM to monitor * Possible SE of Zosyn, consider alternative ABX ADDENDUM 1725: On further chart review, Zosyn is the most likely cause of liver enzyme elevation. D/C Zosyn. Start Primaxin IVPB for intraabdominal gram neg coverage. (4) Hyperglycemia: Assessment and Plan: Acute * Elevated glucose on AM labs, no DM2 hx * check A1C
[2023-10-26] MEDS: 0.9 % SODIUM CHLORIDE 1,000 ML 50 ML IV (16:51)
[2023-10-26] MEDS: IMIPENEM/CILASTATIN SODIUM 1,000 MG in 0.9 % SODIUM CHLORIDE 100 ML 100 MG IV (20:45)
--- NOTE | 2023-10-27 02:57 | PC.NURSE ---
Checked on patient and he was sitting up in chair. Pain has increased to 7/10 and pt states he feels his gall bladder is inflamed. RUQ is tender to touch and feels swollen upon palpitation.
--- NOTE | 2023-10-27 03:08 | P.EN_ITS ---
Event Note Event Note: RN called to notify senior technical writer that pain has increased to surgical site and area feels tender to touch and edema noted; advised to contact surgeon On[place] for surgery issues and ordered Morphine 2mg IV x1 and Compazine for nausea(no emesis). Patient is afebrile w/HR 70's and SBP 134, sat 97%RA.
--- NOTE | 2023-10-27 03:12 | CT_ITS ---
The [address] [address] Patient Name: FABIAN KENNEDY MRN: [id number] date: 1965 Sex: M Assigned Patient Location: [place] Current Patient Location: [place] Accession/Order Number: [id number] Exam Date: 10/27/2023 03:25 Report Date: 10/27/2023 04:57 At the request of: SALVADOR DAVIS Procedure: CT abdomen pelvis w con EXAM: CT abdomen pelvis w con HISTORY: PostOp abdomenal tenderness COMPARISON: Multiple priors, most recent CT abdomen pelvis 10/25/2023 TECHNIQUE: Multiple axial views CT abdomen pelvis after demonstration of 98 cc Omnipaque 300 IV contrast. Coronal sagittal reformats performed. FINDINGS: Visualized lung bases demonstrate moderate right and mild left lung atelectasis at the bilateral lower lobes. Visualized cardiac apex is unremarkable. Trace peritoneal free air underneath the right diaphragm above the right hepatic dome reflecting sequela of recent surgery. Status post appendectomy with trace right lower quadrant abdominal free fluid. Multiple foci of subcutaneous air at the umbilicus, anterior left lower quadrant abdominal wall, and anterior right mid abdominal wall. Skin thickening and subcutaneous stranding edema at these sites reflecting postoperative abdominal wall swelling. No large hematoma. Multiple gallstones at the gallbladder neck without hydropic gallbladder or pericholecystic fluid. Liver, pancreas, spleen, adrenal glands, kidneys, and urinary bladder are unremarkable. Mild prostamegaly measuring 4.7 cm transverse diameter. Mild sigmoid diverticula. Moderate amount of stool and gas within the colon. Stomach is underdistended. No perigastric inflammatory stranding. No evidence for small bowel obstruction, pneumatosis, or large ascites. No acute bony abnormality. Multilevel lumbar disc bulges greatest at L4-L5 with mild spinal canal narrowing at this level. CT/CT abdomen pelvis w con IMPRESSION: 1. Trace peritoneal free air underneath the right diaphragm above the right hepatic dome reflecting sequela of recent surgery. Status post appendectomy with trace right lower quadrant abdominal free fluid. No organized drainable fluid collection seen. 2. Multiple foci of subcutaneous air at the umbilicus, anterior left lower quadrant abdominal wall, and anterior right mid abdominal wall. Skin thickening and subcutaneous stranding edema at these sites reflecting postoperative abdominal wall swelling. No large hematoma. 3. Multiple gallstones at the gallbladder neck without hydropic gallbladder or pericholecystic fluid. 4. Mild sigmoid diverticula. 5. Mild prostamegaly. Electronically authenticated by: JM SCALES Date: 10/27/2023 04:57
[2023-10-27 03:15] VITALS: BP 126/74; PULSE 76; TEMP 37.4; O2SAT 92
--- NOTE | 2023-10-27 03:18 | PC.NURSE ---
Dr Gleason contacted d/t increased pain in RUQ. Vitals T 99.3, BP 126/75, 92% O2 on Room air pulse 76. Dr Gleason requested stat CT
[2023-10-27] MEDS: MORPHINE SULFATE 4 MG/ML VIAL 2 MG IV (04:02)
[2023-10-27] MEDS: IMIPENEM/CILASTATIN SODIUM 1,000 MG in 0.9 % SODIUM CHLORIDE 100 ML 100 MG IV ×2 (04:26→11:02)
[2023-10-27 04:38] VITALS: O2SAT 89
[2023-10-27 04:41] VITALS: O2SAT 97
[2023-10-27 04:57] LABS: Basophils Percent Auto 0.2 % (0.2-2.0); Eosinophils Absolute Auto 0.1 10^3/uL (0.0-0.7); Eosinophils Percent Auto 0.5 % (0.9-7.0); Hematocrit 38.8 % (42.0-54.0); Hemoglobin 12.8 g/dL (14.0-18.0); Immature Granulocytes Abs Auto 0.04 10^3/uL (0.00-0.03); Immature Granulocytes Pct Auto 0.3 % (0.0-0.5); Lymphocytes Absolute Auto 0.6 10^3/uL (1.2-3.8); Lymphocytes Percent Auto 4.4 % (20.5-60.0); Mean Corpuscular Hemoglobin 30.8 pg (25.9-34.0); Mean Corpuscular Volume 93.3 fL (80.0-94.0); Mean Platelet Volume 9.8 fL (9.5-13.5); Monocytes Absolute Auto 1.1 10^3/uL (0.3-0.8); Monocytes Percent Auto 8.6 % (1.7-12.0); Neutrophils Absolute Auto 10.8 10^3/uL (1.4-6.5); Platelet Count 220 10^3/uL (150-450); Red Blood Count 4.16 10^6/uL (4.70-6.10); Red Cell Distribution Width 12.8 % (11.0-15.0); White Blood Count 12.5 10^3/uL (4.0-11.0)
[2023-10-27 05:19] LABS: Alanine Aminotransferase 227 U/L (16-63); Albumin Globulin Ratio 0.9; Alkaline Phosphatase 126 U/L (46-116); Anion Gap 11.3; Aspartate Amino Transferase 106 U/L (15-37); BUN Creatinine Ratio 14.1; Bilirubin Total 2.4 mg/dL (0.2-1.0); Calcium 8.7 mg/dL (8.5-10.1); Carbon Dioxide 26.4 mmol/L (21.0-32.0); Chloride 105 mmol/L (98-107); Estimated GFR (African America >60 (>=60); Estimated GFR (Non-African Ame >60 (>=60); Globulin 3.5 g/dL; Glucose 111 mg/dL (74-106); Potassium 3.7 mmol/L (3.5-5.1); Sodium 139 mmol/L (136-145); Total Protein 6.5 g/dL (6.4-8.2)
[2023-10-27] MEDS: ACETAMINOPHEN 500 MG TABLET 1000 MG PO (06:48)
[2023-10-27 07:11] VITALS: O2SAT 86
--- NOTE | 2023-10-27 07:14 | US_ITS ---
[address] [address] Patient Name: FABIAN KENNEDY MRN: [id number] date: 1965 Sex: M Assigned Patient Location: [place] Current Patient Location: [place] Accession/Order Number: [id number] Exam Date: 10/27/2023 07:15 Report Date: 10/27/2023 08:40 At the request of: SALVADOR DAVIS Procedure: US right upper quadrant EXAMINATION: US right upper quadrant HISTORY: cholelithiasis/right upper quadrant pain COMPARISON: CT abdomen pelvis 10/27/2023 TECHNIQUE: Transabdominal evaluation of the right upper quadrant. FINDINGS: LIVER: Normal size and echotexture. Color Doppler demonstrates patent hepatic veins. PORTAL VEIN: Duplex Doppler demonstrates normal hepatopetal flow pattern with flow velocity averaging 42 cm/s. GALLBLADDER: Several large mobile stones within gallbladder up to 1.8 cm in size. Gallbladder wall thickness at upper limits of normal, 3 mm. No free fluid. BILIARY: No abnormal dilation or stones. Common bile duct diameter is within normal limits. PANCREASE: No visible mass, abnormal atrophy, or duct dilation. KIDNEY: No hydronephrosis. No visible mass or stones. Size: 11.8 x 5.6 x 5.6 cm US/US right upper quadrant IMPRESSION: 1. Cholelithiasis without convincing acute cholecystitis. Electronically authenticated by: REAGAN ALVAREZ Date: 10/27/2023 08:40
--- NOTE | 2023-10-27 07:19 | PM.GSPN ---
Progress Note: A&P Assessment and Plan (1) Acute appendicitis: Qualifiers: Acute appendicitis type: with localized peritonitis Appendicitis abscess presence: without abscess Appendicitis gangrene presence: without gangrene Appendicitis perforation presence: unspecified whether perforation present Qualified Code(s): K35.30 - Acute appendicitis with localized peritonitis, without perforation or gangrene (2) Leukocytosis: Qualifiers: Leukocytosis type: unspecified Qualified Code(s): D72.829 - Elevated white blood cell count, unspecified (3) Transaminitis: Assessment and Plan: cholelithiasis rule out acute cholecystitis with elevated LFTs (4) Hyperglycemia: Plan CCK HIDA scan this morning as well as ultrasound the gallbladder and if normal may discharge home later today but if abnormal we'll need robotic cholecystectomy today or tomorrow. He understood all the above Subjective Subjective Patient reports: still having pain Interval history: I was called at 3:30 AM this morning with patient having acute right upper quadrant abdominal pain suspecting that it might be his gallbladder because he has a history of gallstones. CT scan of the abdomen and pelvis was done and shows gallstones but no hydrops of the gallbladder no acute inflammation. He does have elevated LFTs with bilirubin being up to 2.4 and transaminases being elevated. He is afebrile his white blood count dropped from nineteen thousand yesterday down to twelve thousand. Because of these findings we will obtain a of the gallbladder and cck hida scan. he is comfortable this morning. his last dose of morphine was at 3:30 am. Exam Constitutional Vital Signs, click to edit/add: Last Vital Signs Temp 99.3 F 10/27/23 03:15 Pulse 76 10/27/23 03:15 Resp 18 10/27/23 03:15 BP 126/74 10/27/23 03:15 Pulse Ox 86 L 10/27/23 07:11 O2 Del Method Room Air 10/27/23 07:11 O2 Flow Rate 2 10/27/23 04:41 Documenting provider has reviewed patient's vital signs: yes Common normals: no apparent distress, average body habitus, oriented x3, healthy appearing, alert and well nourished GI Common normals: Normal to inspection, nondistended, normoactive bowel sounds present and soft to palpation Palpation: tender (tender over incisions but he does have an incision in the right upper quadr)
[2023-10-27 07:21] VITALS: BP 122/75; PULSE 77; TEMP 37.3; O2SAT 91
--- NOTE | 2023-10-27 11:11 | CM.NOTE ---
Rounds made with Dr. Che. Potential plan for discharge later today.
[2023-10-27 11:35] VITALS: O2SAT 92
[2023-10-27] MEDS: IBUPROFEN 400 MG TABLET 800 MG PO (11:53)
--- NOTE | 2023-10-27 12:48 | P.DS_ITS ---
DS: Providers Provider Date of admission: 10/25/23 17:58 Primary care physician: LEBOARDO KERNS Consults: 10/26/23 12:51 Consult to General Surgeon Routine Consulting Provider: Nate Gleason Reason for consultation: Acute appendicitis Has provider been notified: Yes DS: Diagnosis Discharge Diagnosis (1) Acute appendicitis: Qualifiers: Acute appendicitis type: with localized peritonitis Appendicitis abscess presence: without abscess Appendicitis gangrene presence: without gangrene Appendicitis perforation presence: unspecified whether perforation present Qualified Code(s): K35.30 - Acute appendicitis with localized peritonitis, without perforation or gangrene (2) Leukocytosis: Qualifiers: Leukocytosis type: unspecified Qualified Code(s): D72.829 - Elevated white blood cell count, unspecified (3) Transaminitis: (4) Cholelithiasis without cholecystitis: (5) Hyperglycemia: DS: Summary Hospital Course Hospital Course: Reason for admission: See ER note and H&P for details. 57 y/o male to ER with abdominal pain. Initially pain in right lower abdomen then diffusely across abdomen. Pain localized to RLQ and increased in intensity. Developed nasuea and vomiting. Afebrile. To ER due to increased pain. WBC elevated and CT with appendicitis. Admitted for treatment. Hospital course: Surgery consulted and started zosyn. Taken to OR for lap choly. Did well after surgery and pain tolerable. WBC and LFTs elevated. Reports found gallstones about 3 years ago but typically doesn't cause pain. Continued antibiotics and fluids. Overnight developed severe pain in RUQ and nausea. CT showed gallstones. Repeat labs showed improved WBC and stable LFTs. US gallbladder showed stones but no signs of acute cholecystitis. Surgery ordered HIDA scan but give morphine for pain and not able to perform. Pain resolved and doing well. Tolerating liquid diet. Discharged home in stable condition Will return for HIDA 10/29. Use ultram PRN. Follow up with surgery in 1-2 weeks. Time Spent with Patient Time attestation: Total time spent providing and/or coordinating discharge services: Time spent: greater than 30 minutes Exam Constitutional Vital Signs, click to edit/add: Last Vital Signs Temp 99.1 F 10/27/23 07:21 Pulse 77 10/27/23 07:21 Resp 20 10/27/23 07:21 BP 122/75 10/27/23 07:21 Pulse Ox 92 L 10/27/23 11:35 O2 Del Method Room Air 10/27/23 11:35 O2 Flow Rate 2 10/27/23 04:41 Documenting provider has reviewed patient's vital signs: yes Common normals: no apparent distress, oriented x3 and alert HENMT Common normals: normocephalic Eye Common normals: PERRL and EOMs intact bilaterally Respiratory Common normals: normal respiratory effort and clear to auscultation bilaterally Cardio Common normals: regular rate, regular rhythm, no gallops, no murmurs and no rub GI Auscultation: normoactive bowel sounds Palpation: soft and tender (Appropriately tender); no guarding Extremity Common normals: no pedal edema DS: Data Data Completed and Pending Labs on day of discharge: Labs from last 24 hours 10/27/23 04:03 WBC 12.5 H RBC 4.16 L Hgb 12.8 L Hct 38.8 L MCV 93.3 MCH 30.8 MCHC 33.0 RDW 12.8 Plt Count 220 MPV 9.8 Neut % (Auto) 86.0 H Lymph % (Auto) 4.4 L [place] % (Auto) 8.6 Eos % (Auto) 0.5 L Baso % (Auto) 0.2 Neut # (Auto) 10.8 H Lymph # (Auto) 0.6 L [place] # (Auto) 1.1 H Eos # (Auto) 0.1 Baso # (Auto) 0.0 Abs Immat Gran (auto) 0.04 H Imm/Tot Granulo (auto) 0.3 Sodium 139 Potassium 3.7 Chloride 105 Carbon Dioxide 26.4 Anion Gap 11.3 BUN 10.0 Creatinine 0.71 Est GFR ( Amer) >60 Est GFR (Non-Af Amer) >60 BUN/Creatinine Ratio 14.1 Glucose 111 H Calcium 8.7 Total Bilirubin 2.4 H AST 106 H ALT 227 H Alkaline Phosphatase 126 H Total Protein 6.5 Albumin 3.0 L Globulin 3.5 Albumin/Globulin Ratio 0.9 Discharge Plan Discharge Disposition: Home, Self-Care Condition: Good Discharge Medications: New tramadol 50 mg Tablet 50 mg PO Q6H PRN (Reason: Pain Scale 4-6) 5 Days Qty: 20 0RF Continued No Known Home Medications Activity: increase activity as tolerated Diet: low fat, low cholesterol Print Language: Polish Patient Instructions: Tramadol (By mouth), Laparoscopic Appendectomy (DC) Activity Restrictions/Additional Instructions: DR Gleason pre printed lap Appy discharge instructions also sent home with pt Forms: Portal Instructions Follow Up Appointments: PEREZ scan here at [facility] MondayOctober 29 @11:30...nothing to eat or drink 4 hrs prior to test November 07 @ 10am with Dr. Gleason ([facility]) [address] [place] [address] [phone]
--- NOTE | 2023-10-31 14:10 | CM.DCFOLLOWU ---
1st attempt discharge follow up call on 10/31/23, no answer
--- NOTE | 2023-11-01 13:17 | CM.DCFOLLOWU ---
Person spoke with: patient How are you feeling? well How is your pain? no pain Did you understand your discharge instructions? yes Do you have any questions about your discharge instructions? no Were you given any prescriptions at discharge? yes Were you able to get your prescriptions filled? yes Do you understand how to take your medications as ordered? yes Do you have any questions about your follow up appointment and do you plan to keep your follow up appointment? no questions, he did speak with Dr. Gleason office and they have not received report on his HIDA scan yet, advised for him to check back with Rosibel roldan later this week and to call back and ask for social problems specialist if they do not have it yet. He also had to reschedule apt time with Dr. Gleason office and they moved him back another week. Is there anything else that you would like to discuss? no Questions/Comments/Concerns/Other: N/A
== END 2023-10-27 13:00 | disposition home or self-care (01) ==
LOC: ER 17:40 → MS 18:09
PROVIDERS: Physician Assistant; Surgery; Admitting Provider Family Medicine; Emergency Provider Emergency Medicine; PCP Family Medicine; Visit Provider Family Medicine
PROC: (CPT 00840; principal; 2023-10-25 19:00)
DX: K35.32 Acute appendicitis with perforation, localized peritonitis, and gangrene, without abscess (principal); D72.829 Elevated white blood cell count, unspecified; R73.9 Hyperglycemia, unspecified; R74.01 Elevation of levels of liver transaminase levels; K80.20 Calculus of gallbladder without cholecystitis without obstruction; Z96.611 Presence of right artificial shoulder joint; Z98.890 Other specified postprocedural states
CPT/HCPCS: 00840; 44970; 36415; 74177; 76705; 80053; 81001; 83036; 83690; 85025; 88304; 94667; 94668; 94761; 96361; 96365; 96366; 96367; 96375; 96376; 99285; 99999; G0378; J1094; J1170; J2704; Q9967

== ENCOUNTER 2023-10-30 11:22 | Outpatient (OUT) | payer OTHER, SELFPAY ==
--- NOTE | 2023-10-30 11:25 | NM_ITS ---
The [address] [address] Patient Name: FABIAN KENNEDY MRN: [id number] date: 1965 Sex: M Assigned Patient Location: [place] Location: [place] Accession/Order Number: [id number] Exam Date: 10/30/2023 11:45 Report Date: 10/30/2023 14:52 At the request of: SALVADOR DAVIS Procedure: [place] hepatobiliary w pharm EXAMINATION: [place] hepatobiliary w pharm HISTORY: RIGHT UPPER QUADRANT PAIN COMPARISON: 10/27/2023 ultrasound TECHNIQUE: Radionuclide hepatobiliary imaging was performed after intravenous injection of 5.1 mCi technetium 99m mebrofenin with sequential acquisitions every 1 minute for one hour. Hepatobiliary imaging with gallbladder ejection fraction analysis was then performed with sequential imaging every 1 minute for 60 minutes following the patient drinking 8 ounces of ensure FINDINGS: LIVER: Normal, prompt and uniform radiotracer uptake and clearing. BILIARY DUCTS: Normal radioisotopic biliary excretion. GALLBLADDER: Normal with no evidence of cystic duct obstruction. INTESTINE: Normal with no evidence of common biliary ductal obstruction. EJECTION FRACTION: 53 % within 60 minutes. (Normal EF > 38%). OTHER: Negative. [facility] hepatobiliary w pharm IMPRESSION: Normal hepatobiliary scan Normal gallbladder ejection fraction Electronically authenticated by: OFELIA ADAME Date: 10/30/2023 14:52
== END 2023-10-30 11:23 | disposition home or self-care (01) ==
LOC: NM 11:22
PROVIDERS: PCP Family Medicine; Visit Provider Surgery
DX: R10.11 Right upper quadrant pain (principal)
CPT/HCPCS: 78227; A9537

== ENCOUNTER 2023-11-09 09:50 | Outpatient (OUT) | payer OTHER, SELFPAY ==
[2023-11-09 10:26] LABS: Alanine Aminotransferase 49 U/L (16-63); Albumin Globulin Ratio 0.9; Albumin Level 3.5 g/dL (3.4-5.0); Alkaline Phosphatase 117 U/L (46-116); Aspartate Amino Transferase 22 U/L (15-37); Bilirubin Direct 0.2 mg/dL (0.0-0.2); Bilirubin Total 0.8 mg/dL (0.2-1.0); Globulin 3.9 g/dL; Total Protein 7.4 g/dL (6.4-8.2)
== END 2023-11-09 09:51 | disposition home or self-care (01) ==
LOC: LAB 09:51
PROVIDERS: PCP Family Medicine; Visit Provider Surgery
DX: R79.89 Other specified abnormal findings of blood chemistry (principal)
CPT/HCPCS: 36415; 80076